=== PATIENT | male | born 1960 | race Caucasian/White ===

== ENCOUNTER 2016-12-17 13:29 | Emergency (ER) | payer MEDICAID ==
[2016-12-17 13:41] VITALS: BP 106/65; TEMP 97.5
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
[2016-12-17] MEDS ORDERED: IBUPROFEN 600 MG TAB PO ONE (14:03)
[2016-12-17] MEDS ORDERED: OXYCODONE/APAP 5/325 TAB PO ONE (14:15)
[2016-12-17 15:11] VITALS: PULSE 62; RESP 18; O2SAT 96
== END 2016-12-17 15:12 | disposition home or self-care (01) ==
LOC: EDUNIT#
DX: T22.232A Burn of second degree of left upper arm, initial encounter (principal); F17.200 Nicotine dependence, unspecified, uncomplicated; T31.0 Burns involving less than 10% of body surface; T22.231A Burn of second degree of right upper arm, initial encounter; X08.8XXA Exposure to other specified smoke, fire and flames, initial encounter; Y92.009 Unspecified place in unspecified non-institutional (private) residence as the place of occurrence of the external cause

== ENCOUNTER 2017-03-11 00:18 | Inpatient (IN) | payer MEDICAID ==
[2017-03-11] MEDS ORDERED: NS 1,000 ML IV ONE ×4 (00:25→04:30)
[2017-03-11] MEDS ORDERED: ONDANSETRON 4 MG/2 ML VIAL IVP ONE ×2 (00:25→01:49)
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
--- NOTE | 2017-03-11 00:35 | CPEKG ---
Heart Rate: 88 RR Interval: 682 P-R Interval: 172 QRSD Interval: 94 QT Interval: 380 QTC Interval: 460 P [place]: 68 QRS [place]: 82 T Wave [place]: 61 EKG Severity - BORDERLINE ECG - EKG Impression: SINUS RHYTHM EKG Impression: BORDERLINE INFERIOR Q WAVES Electronically Signed By: Trung Zayas 11-Mar-2017 06:52:48
[2017-03-11 01:06] LABS: % IMMATURE GRANULYOCYTES 0.3 % (0.0-1.1); ABSOLUTE IMMATURE GRANULOCYTES 0.03 10^3/uL (0.00-0.10); ADD DIFF? NO; ADD MORPH? NO; ADD SCAN? NO; ATYPICAL LYMPHOCYTE FLAG 10 (0-99); FRAGMENT RBC FLAG 0 (0-99); HEMATOCRIT 45.6 % (40.0-51.0); HEMOGLOBIN 15.4 g/dL (13.7-17.5); LEFT SHIFT FLG 0 (0-99); LIPEMIA HEMOLYSIS FLAG 90 (0-99); MEAN CELL HEMOGLOBIN 30.6 pg (27.9-34.1); MEAN CELL HEMOGLOBIN CONCENTR. 33.8 g/dL (32.4-36.7); MEAN CELL VOLUME 90.7 fL (81.5-99.8); MEAN PLATELET VOLUME 10.3 fL (8.7-11.7); PLATELET CLUMPS FLAG 0 (0-99); PLATELET COUNT 190 10^3/uL (150-400); RED BLOOD CELL COUNT 5.03 10^6/uL (4.40-6.38); RED CELL DISTRIBUTION WIDTH 17.5 % (11.5-15.2)
[2017-03-11 01:14] LABS: APTT 24.2 SEC (23.0-38.0); INR 0.97 (0.83-1.16); PROTIME(PATIENT) 12.8 SEC (12.0-15.0)
[2017-03-11 01:26] LABS: ALANINE AMINOTRANSFERASE 45 IU/L (21-72); ALBUMIN 5.3 g/dL (3.5-5.0); ALKALINE PHOSPHATASE 147 IU/L (38-126); ANION GAP 30 mEq/L (8-16); ASPARTATE AMINOTRANSFERASE 70 IU/L (17-59); BILIRUBIN,TOTAL 0.8 mg/dL (0.1-1.4); BILIRUBIN-CONJUGATED 0.2 mg/dL (0.0-0.5); BILIRUBIN-UNCONJUGATED 0.6 mg/dL (0.0-1.1); CALCIUM 9.4 mg/dL (8.5-10.4); CARBON DIOXIDE 11 mEq/l (22-31); CHLORIDE 101 mEq/L (97-110); CREATININE 0.9 mg/dL (0.7-1.3); ETHANOL SERUM 125 mg/dL (0-10); GLOMERULAR FILTRATION RATE > 60; GLUCOSE 66 mg/dL (70-100); MAGNESIUM 1.8 mg/dL (1.6-2.3); POTASSIUM 4.9 mEq/L (3.5-5.2); SODIUM 142 mEq/L (134-144); TOTAL PROTEIN 8.2 g/dL (6.3-8.2)
[2017-03-11 01:36] LABS: TROPONIN I < 0.012 ng/mL (0.000-0.034)
[2017-03-11] MEDS ORDERED: ACETAMINOPHEN 500 MG TAB PO ONE (01:40)
[2017-03-11] MEDS ORDERED: ACETAMINOPHEN 500 MG TAB ONE (01:50)
[2017-03-11] MEDS ORDERED: LORazepam 2 MG/ML INJ ONE (04:28)
[2017-03-11] MEDS ORDERED: LORazepam 2 MG/ML INJ IVP ONE ×3 (04:29→05:04)
[2017-03-11] MEDS ORDERED: IOPAMIDOL (ISOVUE-300) 100 ML BTL ONE (04:35)
[2017-03-11] MEDS ORDERED: LORazepam 2 MG/ML INJ IVP PRN (06:23)
[2017-03-11] MEDS ORDERED: ACETAMINOPHEN 325 MG TAB PO PRN (06:23)
[2017-03-11] MEDS ORDERED: ONDANSETRON 4 MG/2 ML VIAL IVP PRN (06:23)
[2017-03-11 06:30] LABS: ANION GAP 24 mEq/L (8-16); CALCIUM 8.3 mg/dL (8.5-10.4); CARBON DIOXIDE 10 mEq/l (22-31); CHLORIDE 104 mEq/L (97-110); CREATININE 0.9 mg/dL (0.7-1.3); GLOMERULAR FILTRATION RATE > 60; GLUCOSE 70 mg/dL (70-100); POTASSIUM 5.1 mEq/L (3.5-5.2); SODIUM 138 mEq/L (134-144)
[2017-03-11] MEDS ORDERED: NS 1,000 ML IV SCH (06:30)
[2017-03-11] MEDS: D5W NS 1,000 ML IV SCH ×2 (07:53→16:28)
--- NOTE | 2017-03-11 09:04 | PDGENHP ---
History and Physical - Chief Complaint nausea and vomiting - History of Present Illness Source - patient provides history and is a fair historian. EMR reviewed and case discussed with ED provider. HPI - Pleasant 57 yo M with pmhx significant for bipolar disorder,PTSD, anxiety and alcoholism presented to the ED this AM after he was kicked out of his hotel. Patient reports he developed nausea/vomiting, mid abdominal cramping, palpitations and headache. Patient reports subjective fevers chills. His symptoms started approximately 11AM. He reports drinking a pint of vodka the evening prior to coming into ED. Patient denies any chest pain or shortnes of breath. he is complaining of a "killer Headache" but denies any changes in vision or focal deficits. In the ED patient had persistent nausea/vomiting. He received IVF but was noted to have AG acidosis. despite anti-emetics patient continued to have active vomiting. A CT Abd/pelvis was notable for gastric distension and large volume of fluid retention otherwise normal. Patient did not have an NGT placed but received additional antiemetics and had no further episodes of vomiting since arrival to the floor. At time of my visit patient was actually wondering when he could eat. History Information - Allergies/Home Medication List Allergies/Adverse Reactions: No Known Allergies Allergy (Verified 02/03/15 22:26) Home Medications: Mirtazapine [Remeron] 30 mg PO HS 01/20/15 [Last Taken 3 Days Ago ~03/08/17] Gabapentin [Neurontin 300 MG (*)] 600 mg PO TID 03/11/17 [Last Taken 3 Days Ago ~03/08/17] PARoxetine HCL [Paxil 20mg (*)] 40 mg PO DAILY 03/11/17 [Last Taken 3 Days Ago ~ 03/08/17] QUEtiapine FUMARATE [Seroquel 100 mg (*)] 100 mg PO BID@,16 03/11/17 [Last Taken 3 Days Ago ~03/08/17] QUEtiapine FUMARATE [Seroquel 200 mg (*)] 200 mg PO HS 03/11/17 [Last Taken 3 Days Ago ~03/08/17] I have personally reviewed and updated: family history, medical history, social history, surgical history - Past Medical History Additional medical history: alcoholism 1 pint vodka regularly. depresison/ anxiety/PTSD/bipolar disorder. insomnia - Surgical History Additional surgical history: right arm skin graft. appy. katty - Family History Additional family history: patient denies DM, HTN - Social History Smoking Status: Heavy smoker Alcohol Use: Heavy (1 pint vodka) Drug Use: None Additional social history: Patient is homeless was recently dismissed from hotel. COR - FULL. Review of Systems Review of Systems: ROS: 10pt was reviewed & negative except for what was stated in HPI & below Constitutional: Reports: chills, fever EENMT: Reports: sore throat. Denies: blurred vision, eye pain, nose congestion Cardiac: Reports: no symptoms. Denies: chest pain, lightheadedness, palpitations, syncope Respiratory: Reports: cough (chronic). Denies: shortness of breath Gastrointestinal: Reports: vomitting, abdominal pain (midabdominal cramping now improved. ), nausea (reports "brown" emesis denies coffee grounds.). Denies: diarrhea Genitourinary: Denies: dysuria, hematuria Muscolosketal: Reports: calf pain (cramping without swelling or redness) Skin: Reports: no symptoms. Denies: lesions, rash Neurological: Reports: anxiety, depressed, headache, tingling (toes), tremors, other (patient is denying any SI/HI. ) Physical Exam Physical Exam: Selected Entries 03/11/17 00:28 Blood Pressure Automatic Method Heart Rate 91 Respiratory 18 Rate O2 Sat (%) 95 Temperature (C) 36.4 C Blood Pressure 150/115 H Mean Arterial 126 H Pressure (MAP) O2 Delivery Room Air Mode Temperature Oral Source Temp Pulse Resp BP Pulse Ox 36.7 C 90 16 147/94 H 94 03/11/17 06:43 03/11/17 06:43 03/11/17 06:43 03/11/17 06:43 03/11/17 06:43 Constitutional: no apparent distress, not in pain, chronically ill appearing, cachectic, other (patient appears fatigued and acutely ill but nontoxic. patient smells of alcohol.) Eyes: PERRL (slightly decreased reactivity to light), anicteric sclera, EOMI Ears, Nose, Mouth, Throat: poor dentition (several teeth in poor repair), dry mucous membranes, other (no nasal discharge, mild oropharyngeal erythema without exudates. ) Cardiovascular: regular rate and rhythym, no murmur, rub, or gallop, No edema Peripheral Pulses: 2+: dorsalis-pedis (R), dorsalis-pedis (L) Respiratory: no respiratory distress, no rales or rhonchi, clear to auscultation Gastrointestinal: soft, non-tender abdomen, no palpable masses, other ( hypoactive bowel sounds), No tenderness, No distension Genitourinary: no bladder tenderness, No cardoza in urethra Skin: warm, normal color, no rashes or abrasions Musculoskeletal: generalized weakness, other (moves all extremities. grossly normal.) Neurologic: AAOx3, weakness (generalized), CN II-XII Intact, other (slight tremor in hands presents bilaterally. ), No facial droop Psychiatric: interacting appropriately, not encephalopathic, thought process linear, anxious, depressed, flat affect, other (patient with some psychomotor delay in responses. ), No poor insight, No poor judgement, No poor memory Lab Data & Imaging Review 03/11/17 00:39 03/11/17 06:09 WBC 9.39 10^3/uL (3.80-9.50) 03/11/17 00:39 RBC 5.03 10^6/uL (4.40-6.38) 03/11/17 00:39 Hgb 15.4 g/dL (13.7-17.5) 03/11/17 00:39 Hct 45.6 % (40.0-51.0) 03/11/17 00:39 MCV 90.7 fL (81.5-99.8) 03/11/17 00:39 MCH 30.6 pg (27.9-34.1) 03/11/17 00:39 MCHC 33.8 g/dL (32.4-36.7) 03/11/17 00:39 RDW 17.5 % (11.5-15.2) H 03/11/17 00:39 Plt Count 190 10^3/uL (150-400) 03/11/17 00:39 MPV 10.3 fL (8.7-11.7) 03/11/17 00:39 Neut % (Auto) 76.1 % (39.3-74.2) H 03/11/17 00:39 Lymph % (Auto) 18.1 % (15.0-45.0) 03/11/17 00:39 [place] % (Auto) 5.0 % (4.5-13.0) 03/11/17 00:39 Eos % (Auto) 0.1 % (0.6-7.6) L 03/11/17 00:39 Baso % (Auto) 0.4 % (0.3-1.7) 03/11/17 00:39 Nucleat RBC Rel Count 0.0 % (0.0-0.2) 03/11/17 00:39 Absolute Neuts (auto) 7.14 10^3/uL (1.70-6.50) H 03/11/17 00:39 Absolute Lymphs (auto) 1.70 10^3/uL (1.00-3.00) 03/11/17 00:39 Absolute Monos (auto) 0.47 10^3/uL (0.30-0.80) 03/11/17 00:39 Absolute Eos (auto) 0.01 10^3/uL (0.03-0.40) L 03/11/17 00:39 Absolute Basos (auto) 0.04 10^3/uL (0.02-0.10) 03/11/17 00:39 Absolute Nucleated RBC 0.00 10^3/uL (0-0.01) 03/11/17 00:39 Immature Gran % 0.3 % (0.0-1.1) 03/11/17 00:39 Immature Gran # 0.03 10^3/uL (0.00-0.10) 03/11/17 00:39 PT 12.8 SEC (12.0-15.0) 03/11/17 00:39 INR 0.97 (0.83-1.16) 03/11/17 00:39 APTT 24.2 SEC (23.0-38.0) 03/11/17 00:39 Sodium 138 mEq/L (134-144) 03/11/17 06:09 Potassium 5.1 mEq/L (3.5-5.2) 03/11/17 06:09 Chloride 104 mEq/L (97-110) 03/11/17 06:09 Carbon Dioxide 10 mEq/l (22-31) L 03/11/17 06:09 Anion Gap 24 mEq/L (8-16) H 03/11/17 06:09 BUN 15 mg/dL (7-23) 03/11/17 06:09 Creatinine 0.9 mg/dL (0.7-1.3) 03/11/17 06:09 Estimated GFR > 60 03/11/17 06:09 Glucose 70 mg/dL (70-100) 03/11/17 06:09 Calcium 8.3 mg/dL (8.5-10.4) L 03/11/17 06:09 Magnesium 1.8 mg/dL (1.6-2.3) 03/11/17 00:39 Total Bilirubin 0.8 mg/dL (0.1-1.4) 03/11/17 00:39 Conjugated Bilirubin 0.2 mg/dL (0.0-0.5) 03/11/17 00:39 Unconjugated Bilirubin 0.6 mg/dL (0.0-1.1) 03/11/17 00:39 AST 70 IU/L (17-59) H 03/11/17 00:39 ALT 45 IU/L (21-72) 03/11/17 00:39 Alkaline Phosphatase 147 IU/L (38-126) H 03/11/17 00:39 Troponin I < 0.012 ng/mL (0.000-0.034) 03/11/17 00:39 Total Protein 8.2 g/dL (6.3-8.2) 03/11/17 00:39 Albumin 5.3 g/dL (3.5-5.0) H 03/11/17 00:39 Lipase 42 IU/L (23-300) 03/11/17 00:39 Ethyl Alcohol 125 mg/dL (0-10) H 03/11/17 00:39 Imaging Review: Preliminary reports reviewed. CT Abd/pelvis - distended stomach. no free air. otherwise normal. CT head - nothing acute. Visualized and Interpreted Chest x-ray results: Yes Chest X-Ray results: no infiltrate, normal, other (stomach with large gastric bubble no evidence of air under diaphragm) EKG Interpretation: Positive for: normal sinsus rhythm EKG additional interpertation: NSR 80s. small q waves inf leads. no acute ST changes. QTc 460. Assessment & Plan Assessment: 57 yo M with pmhx significant for alcoholism, bipolar disorder/anxiety/PTSD #intractable Nausea & vomiting (Acute) - continue with zofran phenergan prn. ativan/benadryl or haldol if persistently resistant to typical antiemetics. #anion gap acidosis - 2/2 dehydration with nausea/vomiting and/or alcohol intoxication. IVF hydration s/p 3 liters IVF in the ED. serial BMP. # stomach distension - no evidence of obstruction but possibly dysmotility related to gastritis vs. gastric outlet obstruction. Patient without NGT but has stopped vomiting. H2 maxine ordered. #Alcohol intoxication (Acute) - ativan prn. ciwa protocol ordered. transition to po benzo when diet advanced. thiamine IV. #hypoglycemia - patient will advance diet starting with clears. D5NS added for supplementation and hypoglycemia protocol ordered. #bipolar disorder - patient reports he stopped taking his medications a few days ago. once list can be verified by pharmacy will resume as diet improves. #anxiety/depression/PTSD - ativan prn. resume home medications when tolerating po. #homelessness - CM/SW consultation. FEN - IVF. electrolyte replacement if needed. clear diet for now patient reports he is feeling hungry. PPX - SCDs. lovenox if patient should stay additional day. COR - FULL. Dispo - Admit to observation on medical floor.
[2017-03-11] MEDS ORDERED: D50W 25 GM/50 ML SYR IVP PRN (09:05)
[2017-03-11] MEDS ORDERED: CEPACOL LOZENGE PO PRN (09:14)
[2017-03-11] MEDS: THIAMINE HCL 500 MG in NS 100 ML IV SCH (09:58)
[2017-03-11] MEDS: FAMOTIDINE 20 MG/NACL 50 ML IV SCH ×2 (09:58→21:50)
[2017-03-11] MEDS ORDERED: METOCLOPRAMIDE 10 MG/2 ML VIAL IVP SCH (12:00)
[2017-03-11] MEDS: LORazepam 2 MG/ML INJ IVP PRN ×2 (12:21→16:26)
--- NOTE | 2017-03-11 15:23 | HOSPPROG ---
Hospitalist Progress Note Assessment/Plan: 57 yo M with hx of etoh abuse pw etoh withdrawal # etoh use disorder and withdrawal: presented after being kicked out of his hotel with n/v and etoh w/d--w/d sxs beginning with BAL of 125. Improved on etoh w/d protocol, following CIWA scores. Continue MVI, thiamine and folate. Patient states he is planning to stay off of etoh going forward. # mild alcoholic hepatitis: mild elevation in ast > alt most c/w alc hep, mild, monitoring # bipolar/ptsd/anxiety: continue op management # dispo: IP status, will likely need > 48 hours stay for eval/mgmt of above Patient new to my care. Old records reviewed and summarized as above. Subjective: no significant overnight events, patient notes feeling a bit better than when he came in, still wants to quit drinking Objective: Vital Signs Temp Pulse Resp BP Pulse Ox 36.9 C 94 18 148/86 H 93 03/11/17 11:36 03/11/17 11:36 03/11/17 11:36 03/11/17 11:36 03/11/17 11:36 Laboratory Results 03/11/17 06:09 03/10/17 03/11/17 03/12/17 05:59 05:59 05:59 Intake Total 3120 Balance 3120 PT 12.8 SEC (12.0-15.0) 03/11/17 00:39 INR 0.97 (0.83-1.16) 03/11/17 00:39 awake alert nad anicteric op clear poor dentition rrr no mrg cta b soft nt nd no cce warm dry well perfused oriented appropriate ICD10 Worksheet Patient Problems: Problems Problem Status Onset Depression - Depressive disorder Acute Alcohol dependence with alcohol-induced mood disorder Acute Alcohol abuse, daily use Acute Alcohol withdrawal with inpatient treatment Acute Alcohol intoxication Acute Nausea & vomiting Acute
[2017-03-11] MEDS: QUEtiapine FUMARATE 100 MG TAB PO SCH (16:27)
[2017-03-11] MEDS: GABAPENTIN 300 MG CAP PO SCH ×2 (16:27→21:54)
--- NOTE | 2017-03-11 16:31 | ASMTCASEMG ---
Living Arrangements What is your living Answers: Alone arrangement? Who do you live with? Type Of Residence What kind of residence do Answers: House you live in? Discharge Plan Comments Coordination Status Comments Notes: Pt is a 57 y/o man admitted for nausea and vomiting. Pt is currently on a CIWA protocol. Pt has a hx of anxiety, bi polar d/o, PTSD and ETOH. CM met w/ pt for dispo planning and provided ETOH resources. Pt reports that he has been to numerous substance abuse tx facilities in the past. Pt reports that his longest length of sobriety was a year. Pt reports that living w/ his dad is not a viable option at this time. Pt reports that he was staying at [facility] prior to coming to the hospital. Pt reports that we would most likely be able to reserve a fci bed for him at time of d/c. CM available for d/c needs. Date Signed: 03/11/2017 04:30 PM Electronically Signed By:MAURICE Tomlinson
--- NOTE | 2017-03-11 16:41 | ASMTCAGE ---
CAGE Do you feel you ought to Answers: Yes cut down on your drinking or drug use? Do people annoy you by Answers: No criticizing your drinking or drug use? Do you feel guilty about Answers: Yes your drinking or drug use? Do you drink or use drugs Answers: No first thing in the morning ([employer])? Date Signed: 03/11/2017 04:40 PM Electronically Signed By:MAURICE Tomlinson
[2017-03-11 18:04] LABS: COLOR YELLOW; LEUKOCYTE ESTERASE,URINE NEGATIVE (NEGATIVE); NITRITE,URINE NEGATIVE (NEGATIVE)
[2017-03-11] MEDS: QUEtiapine FUMARATE 200 MG TAB PO SCH (21:54)
[2017-03-11] MEDS: MIRTAZAPINE 30 MG TAB PO SCH (21:54)
[2017-03-12] MEDS: D5W NS 1,000 ML IV SCH (03:38)
[2017-03-12 05:33] LABS: % IMMATURE GRANULYOCYTES 0.2 % (0.0-1.1); ABSOLUTE IMMATURE GRANULOCYTES 0.01 10^3/uL (0.00-0.10); ADD DIFF? NO; ADD MORPH? NO; ADD SCAN? NO; ATYPICAL LYMPHOCYTE FLAG 10 (0-99); FRAGMENT RBC FLAG 0 (0-99); HEMATOCRIT 36.9 % (40.0-51.0); HEMOGLOBIN 12.7 g/dL (13.7-17.5); LEFT SHIFT FLG 0 (0-99); LIPEMIA HEMOLYSIS FLAG 90 (0-99); MEAN CELL HEMOGLOBIN 30.8 pg (27.9-34.1); MEAN CELL HEMOGLOBIN CONCENTR. 34.4 g/dL (32.4-36.7); MEAN CELL VOLUME 89.6 fL (81.5-99.8); MEAN PLATELET VOLUME 10.9 fL (8.7-11.7); PLATELET CLUMPS FLAG 10 (0-99); PLATELET COUNT 109 10^3/uL (150-400); RED BLOOD CELL COUNT 4.12 10^6/uL (4.40-6.38); RED CELL DISTRIBUTION WIDTH 17.2 % (11.5-15.2)
[2017-03-12 05:55] LABS: ALANINE AMINOTRANSFERASE 32 IU/L (21-72); ALBUMIN 3.6 g/dL (3.5-5.0); ALKALINE PHOSPHATASE 89 IU/L (38-126); ANION GAP 10 mEq/L (8-16); ASPARTATE AMINOTRANSFERASE 41 IU/L (17-59); BILIRUBIN,TOTAL 0.7 mg/dL (0.1-1.4); CALCIUM 8.7 mg/dL (8.5-10.4); CARBON DIOXIDE 22 mEq/l (22-31); CHLORIDE 112 mEq/L (97-110); CREATININE 0.8 mg/dL (0.7-1.3); GLOMERULAR FILTRATION RATE > 60; GLUCOSE 101 mg/dL (70-100); SODIUM 144 mEq/L (134-144); TOTAL PROTEIN 5.9 g/dL (6.3-8.2)
[2017-03-12] MEDS: THIAMINE HCL 500 MG in NS 100 ML IV SCH (10:18)
[2017-03-12] MEDS: FAMOTIDINE 20 MG/NACL 50 ML IV SCH (10:18)
[2017-03-12] MEDS: QUEtiapine FUMARATE 100 MG TAB PO SCH ×2 (10:19→16:36)
[2017-03-12] MEDS: GABAPENTIN 300 MG CAP PO SCH ×3 (10:20→20:59)
[2017-03-12] MEDS: PARoxetine HCL 20 MG TAB PO SCH (10:20)
[2017-03-12] MEDS: ENOXAPARIN 40 MG/0.4 ML SYR SC SCH (10:22)
[2017-03-12] MEDS: LORazepam 2 MG/ML INJ IVP PRN ×3 (10:43→22:36)
--- NOTE | 2017-03-12 13:20 | PDMN ---
Medical Necessity Medical necessity: change to IP; los>2mn for etoh use disorder and withdrawal, and alcoholic hepatitis; admit for CIWA, lab monitoring, IVF W/MVI; comorbid bipolar; per order and H&P 03/11/17
--- NOTE | 2017-03-12 15:07 | ASMTCMCOM ---
CM Note CM Note Notes: CM spoke w/ pts father Denzel, on the phone. Denzel reports that pt is a fugitive. CM notified charge nurse and pts nurseMindy of this. Denzel reports that pt missed his work release appointment on 02/28 with [facility]. Denzel reports that pt has 0 supports here. Denzel reports that he will no longer give him any more money. Pt reports that he has already spent over 10k helping him in the past. Denzel reports that he will call [facility] to notify them. CM spoke w/ Dr. Luna regarding d/c POC. PT and OT have been ordered. CM to follow. Date Signed: 03/12/2017 03:06 PM Electronically Signed By:MAURICE Tomlinson
--- NOTE | 2017-03-12 16:22 | HOSPPROG ---
Hospitalist Progress Note Assessment/Plan: Assessment: 57 yo M p/w acute alcohol withdraw c/b persistent nausea, headache, general malaise Plan: # etoh use disorder and acute withdrawal: evidenced by malaise, nausea, tremulousness, EtOH 125 on presentation, attempting to get/stay sober - ongoing withdraw sx, cont CIWA - work w/ PT/OT today to gauge safety w/ ambulation # general malaise: acute, new problem, further w/u indicated. nausea, headache, gen weakness, patient reports these are different symptoms from prior episode of EtOH withdraw - cont supportive care w/ anti-emetics, NSAID/tylenol - stop IVF given PO intake - CXR w/o PNA (personally interpreted), CT abd w/ steatosis and gastric distention but nothing acute, HCT w/o ICH - start PPI for possible reflux contributing - get ESR/CRP/CPK to ensure no underlying inflam myopathy # mild alcoholic hepatitis: mild elevation in ast > alt most c/w alc hep, mild, monitoring # bipolar/ptsd/anxiety: continue op management diet: reg as ninfa ppx: high risk, lovenox 40 code: full dispo: ADD 03/13, pending PT/OT evals, has ongoing sx so unsafe to discharge Subjective: ongoing nausea, weakness, feels unwell Objective: Vital Signs Temp Pulse Resp BP Pulse Ox 37.0 C 66 18 127/75 H 92 03/12/17 15:43 03/12/17 15:43 03/12/17 15:43 03/12/17 15:43 03/12/17 15:43 Laboratory Results 03/12/17 04:53 03/12/17 04:53 03/11/17 03/12/17 03/13/17 05:59 05:59 05:59 Intake Total 2237 Output Total 900 Balance 2237 -900 PT 12.8 SEC (12.0-15.0) 03/11/17 00:39 INR 0.97 (0.83-1.16) 03/11/17 00:39 - Physical Exam Constitutional: no apparent distress, appears nourished, not in pain, uncomfortable Cardiovascular: regular rate and rhythym, no murmur, rub, or gallop, No edema Respiratory: no respiratory distress, no rales or rhonchi, clear to auscultation Gastrointestinal: normoactive bowel sounds, soft, non-tender abdomen, no palpable masses, No guarding, No distension Neurologic: AAOx3, other (mild tremulousness), No weakness (motor 5/5 bilat LE) , No asterixes Psychiatric: not encephalopathic, thought process linear, anxious, No agitated ICD10 Worksheet Patient Problems: Problems Problem Status Onset Alcohol intoxication Acute Nausea & vomiting Acute Alcohol abuse, daily use Acute Alcohol dependence with alcohol-induced mood disorder Acute Alcohol withdrawal with inpatient treatment Acute Depression - Depressive disorder Acute
[2017-03-12] MEDS ORDERED: CALCIUM CARBONATE 500 MG CHEWABLE TAB PO PRN (16:33)
[2017-03-12] MEDS ORDERED: ONDANSETRON DISINTEGRATING 4 MG TAB PO PRN (16:34)
[2017-03-12] MEDS ORDERED: PROMETHAZINE HCL 25 MG TAB PO PRN (16:34)
[2017-03-12] MEDS: PANTOPRAZOLE SODIUM 40 MG TAB PO SCH (17:40)
[2017-03-12 17:49] LABS: C-REACTIVE PROTEIN 7.6 mg/L (<10.0)
[2017-03-12 19:18] LABS: SEDIMENTATION RATE 7 MM/HR (0-20)
[2017-03-12] MEDS: QUEtiapine FUMARATE 200 MG TAB PO SCH (20:59)
[2017-03-12] MEDS: MIRTAZAPINE 30 MG TAB PO SCH (20:59)
[2017-03-13] MEDS: LORazepam 1 MG TAB PO PRN ×3 (00:55→14:33)
[2017-03-13] MEDS: GABAPENTIN 300 MG CAP PO SCH ×2 (08:48→15:13)
[2017-03-13] MEDS: PARoxetine HCL 20 MG TAB PO SCH (08:48)
[2017-03-13] MEDS: QUEtiapine FUMARATE 100 MG TAB PO SCH ×2 (08:48→15:14)
[2017-03-13] MEDS: ENOXAPARIN 40 MG/0.4 ML SYR SC SCH (08:48)
[2017-03-13] MEDS: PANTOPRAZOLE SODIUM 40 MG TAB PO SCH (08:48)
[2017-03-13 11:33] VITALS: O2SAT 95
[2017-03-13 16:13] VITALS: BP 127/98; PULSE 76; RESP 18; TEMP 98
--- NOTE | 2017-03-13 17:02 | ASMTCMCOM ---
CM Note CM Note Notes: Pt. d/c'ed today later in the afternoon. After MD saw Pt., Pt. told SWer that he didn't understand that he would be d/c'ed and he wasn't ready to go. Lennyr let RN know who will be working with MD on Pt's d/c. Jim provided Pt. earlier in the day w/ a list of [facility] shelters through the [facility] to Home program. Gave Pt. a bus pass and [facility] appt. for 03/18/17 at 10:30 w/ Meena Kumar NP in the Green pod. RN to work with MD on d/c of Pt. Jim left information of how to get Pt. [facility] Skilled Nursing bed and left cab voucher should it be necessary. Date Signed: 03/13/2017 05:01 PM Electronically Signed By:Dionna Lobato LCSW
--- NOTE | 2017-03-13 17:49 | PDDCSUM ---
Discharge Summary Discharge Summary: DISCHARGE SUMMARY FOLLOW-UP ITEMS: Establish primary care Follow up with [facility] DATE OF ADMISSION: 03/11/2017 DATE OF DISCHARGE: 03/13/2017 DISCHARGE DIAGNOSES: 1. Suspected gastritis 2. Suspected gastroesophageal reflux disease 3. Hepatic steatosis 4. Acute alcohol withdrawal 5. Bipolar disease type 1 6. Acute malaise CONSULTATIONS: None PROCEDURES / IMAGING: CT of the abdomen demonstrating steatosis, gastric distention and likely reflux CHIEF COMPLAINT: General malaise, nausea vomiting headache SUBJECTIVE: Patient is feeling well at time discharge, he is somewhat stressed and anxious PHYSICAL EXAM ON DISCHARGE: Systolic blood pressure is 127, heart rate 76, afebrile overnight, satting well on room air, alert awake oriented x3, mild amount of stress, no tremulousness, ambulating safely LABS ON DISCHARGE: CRP and ESR both normal HOSPITAL COURSE BY PROBLEM: The patient presented with general malaise, nausea, vomiting, headache, most likely secondary to acute alcohol withdrawal. He was notably tremulous, tachycardic, anxious. His alcohol level was 125, and he had recently been coming down off of alcohol binge. The reason the patient quit drinking was secondary to monetary reasons. The patient most likely also had an element of alcohol induced gastritis, with resultant reflux, and he was initiated on a PPI. Patient was also initiated on the CIWA score, received Ativan. He was evaluated for underlying structural and infectious causes of his symptoms, and there was no other clear precipitant. His inflammatory markers were notably normal, indicating that it was unlikely that the patient was experiencing any element of viral gastroenteritis. The patient was evaluated by physical and occupational therapy, and they deem the patient safe for discharge on March 13. The patient's alcohol withdrawal had been subsiding, and he will be prescribed 5 additional doses of low-dose Librium, to help manage symptoms after discharge. I have warned patient that these medications are not to be taken with alcohol. The patient is very concerned about his outpatient behavioral health medication regimen, and I have recommended that he follow up with [facility] as soon as possible. DISCHARGE MEDICATIONS: Please see official discharge medication reconciliation sheet in chart , Librium 10 mg once daily for 5 days pantoprazole 40 mg daily for 1 month, continue other home medications. DISCHARGE INSTRUCTIONS: Please follow up with [facility] as soon as possible. TIME SPENT: Greater than 30 minutes were spent on direct patient care, as well as discharge planning and preparation.
--- NOTE | 2017-03-14 10:50 | ASDISCHSUM ---
Discharge Information Plan Status:Home with No Needs Medically Cleared to Leave: Discharge Date:03/13/2017 05:50 PM CM D/C Disposition:Home, Routine, Self-Care ADT D/C Disposition:Home, Routine, Self-Care Projected Discharge Date:03/13/2017 05:50 PM Transportation at D/C:Taxicab Discharge Delay Reason: Follow-Up Date:03/13/2017 05:50 PM Discharge Slot: Final Diagnosis: Placement Information Patient Contact Information Contact Name:LILIAN Relationship:Father Address: Work Phone: City:[place] Alternate Phone: State/[place] Code:[place] Email: Financial Information Financial Class: Primary Plan Desc:[facility] Primary Plan Number:[id number] Secondary Plan Desc: Secondary Plan Number: Assessment Information [facility] Initial CM Assessment Living Arrangements What is your living Answers: Alone arrangement? Who do you live with? Type Of Residence What kind of residence do Answers: House you live in? Discharge Plan Comments Coordination Status Comments Notes: Pt is a 57 y/o man admitted for nausea and vomiting. Pt is currently on a [facility] protocol. Pt has a hx of anxiety, bi polar d/o, PTSD and ETOH. CM met w/ pt for dispo planning and provided ETOH resources. Pt reports that he has been to numerous substance abuse tx facilities in the past. Pt reports that his longest length of sobriety was a year. Pt reports that living w/ his dad is not a viable option at this time. Pt reports that he was staying at [facility] prior to coming to the hospital. Pt reports that we would most likely be able to reserve a fdc bed for him at time of d/c. CM available for d/c needs. Date Signed: 03/11/2017 04:30 PM Electronically Signed By:MAURICE Tomlinson CAGE Questionnaire CAGE Do you feel you ought to Answers: Yes cut down on your drinking or drug use? Do people annoy you by Answers: No criticizing your drinking or drug use? Do you feel guilty about Answers: Yes your drinking or drug use? Do you drink or use drugs Answers: No first thing in the morning ([employer])? Date Signed: 03/11/2017 04:40 PM Electronically Signed By:MAURICE Tomlinson [facility] Progress Note CM Note CM Note Notes: CM spoke w/ pts father Denzel, on the phone. Denzel reports that pt is a fugitive. FABBY notified charge nurse and pts nurseMindy of this. Denzel reports that pt missed his work release appointment on 02/28 with [facility]. Denzel reports that pt has 0 supports here. Denzel reports that he will no longer give him any more money. Pt reports that he has already spent over 10k helping him in the past. Denzel reports that he will call [facility] to notify them. FABBY spoke w/ Dr. Luna regarding d/c POC. PT and OT have been ordered. CM to follow. Date Signed: 03/12/2017 03:06 PM Electronically Signed By:MAURICE Tomlinson [facility] FABBY Progress Note CM Note CM Note Notes: Pt. d/c'ed today later in the afternoon. After MD saw Pt., Pt. told Lennyr that he didn't understand that he would be d/c'ed and he wasn't ready to go. Jim let RN know who will be working with MD on Pt's d/c. Jim provided Pt. earlier in the day w/ a list of [facility] shelters through the Path to Home program. Gave Pt. a bus pass and [facility] appt. for 03/18/17 at 10:30 w/ Meena Kumar NP in the Green pod. RN to work with MD on d/c of Pt. Jim left information of how to get Pt. [facility] Long Term bed and left cab voucher should it be necessary. Date Signed: 03/13/2017 05:01 PM Electronically Signed By:Dionna Lobato LCSW Intervention Information
[2017-03-16] MEDS ORDERED: THIAMINE HCL 100 MG TAB PO SCH (00:40)
== END 2017-03-13 17:50 | disposition home or self-care (01) | DRG 897 ==
LOC: EDUNIT# → F3E 06:33 → OBSVTOIN 15:24
PROVIDERS: ADMIT Family Medicine; ATTEND Internal Medicine
DX: F10.239 Alcohol dependence with withdrawal, unspecified (principal); K29.70 Gastritis, unspecified, without bleeding; E87.2 Acidosis; K21.9 Gastro-esophageal reflux disease without esophagitis; K76.0 Fatty (change of) liver, not elsewhere classified; F31.9 Bipolar disorder, unspecified; R53.81 Other malaise; F43.10 Post-traumatic stress disorder, unspecified; F41.9 Anxiety disorder, unspecified; E86.0 Dehydration; E16.2 Hypoglycemia, unspecified; Z59.0 Homelessness
CPT/HCPCS: 96374; 97161-GP; G0480; G8978-GP-CI; G8979-GP-CI; G8980-GP-CI; J1650; J2060; J2405; J3411; Q9967

== ENCOUNTER 2017-03-15 08:27 | Emergency (ER) | payer MEDICAID ==
--- NOTE | 2017-03-15 08:38 | EDPHY ---
H & P Time Seen by Provider: 03/15/17 08:36 - Personal History Tetanus Vaccine Date: <10 YEARS - Medical/Surgical History Hx Asthma: No Hx Chronic Respiratory Disease: No Hx Diabetes: No Hx Cardiac Disease: No Hx Renal Disease: No Hx Cirrhosis: No Hx Alcoholism: Yes Hx HIV/AIDS: No Hx Splenectomy or Spleen Trauma: No Other PMH: PMH--BIPOLAR, ETOH abuse, PTSD, anxiety. alcohol withdrawl. PSH-- Appy, Choly - Social History Smoking Status: Heavy smoker Constitutional: Initial Vital Signs Temperature (C) 36.4 C 03/15/17 08:43 Heart Rate 79 03/15/17 08:43 Respiratory Rate 18 03/15/17 08:43 Blood Pressure 113/84 H 03/15/17 08:43 O2 Sat (%) 95 03/15/17 08:43 O2 Delivery Mode Room Air Allergies/Adverse Reactions: No Known Allergies Allergy (Verified 02/03/15 22:26) Home Medications: Medication Instructions Recorded Mirtazapine [Remeron] 30 mg PO HS 01/20/15 Gabapentin [Neurontin 300 MG (*)] 600 mg PO TID 03/11/17 PARoxetine HCL [Paxil 20mg (*)] 40 mg PO DAILY 03/11/17 QUEtiapine FUMARATE [Seroquel 100 100 mg PO BID@09,16 03/11/17 mg (*)] QUEtiapine FUMARATE [Seroquel 200 200 mg PO HS 03/11/17 mg (*)] Ondansetron Odt [Zofran Odt 4 mg 4 - 8 mg PO Q4HRS PRN #40 tab 03/13/17 (*)] Pantoprazole Sodium [Protonix 40mg 40 mg PO DAILY #30 tab 03/13/17 (*)] chlordiazePOXIDE [Librium] 10 mg PO DAILY #5 cap 03/13/17 Medical Decision Making ED Course/Re-evaluation: CHIEF COMPLAINT: Anxiety HISTORY OF PRESENT ILLNESS: The patient is a 57 y/o male arriving via EMS complaining of an anxiety attack this morning. He was admitted on 03/11/17 for gastritis and alcohol withdrawal. He was discharged to a hotel, but was not able to pay for it and is now in a homeless residential. He is also complaining of dizziness and thirst at this time. He is not currently taking his medications. The patient is a poor historian. Prior reports reviewed including ED Visit with Dr. Zayas on 03/11/17. REVIEW OF SYSTEMS: A 10 point review of systems was performed and is negative with the exception of the elements mentioned in the history of present illness. PHYSICAL EXAM: HR, BP, O2 Sat, RR. Temp noted General Appearance: Alert, well hydrated, appropriate, and non-toxic appearing. Head: Atraumatic without scalp tenderness or obvious injury Eyes: Pupils equal, round, reactive to light and accommodation, EOMI, no trauma , no injection. Ears: Clear bilaterally, no perforation, normal landmarks Nose: Atraumatic, no rhinorrhea, clear. Throat: Mucus membranes moist. Neck: Supple, nontender, no lymphadenopathy. Respiratory: No retractions, no distress, no wheezes, and no accessory muscle use. Lungs are clear to auscultation bilaterally. Cardiovascular: Regular rate and rhythm, no murmurs, rubs, or gallops. Good capillary refill all extremities. Gastrointestinal: Abdomen is soft, nontender, non-distended, no masses, no rebound, no guarding, no peritoneal signs. Musculoskeletal: Normal active ROM of all extremities, atraumatic. Neurological: Alert, appropriate, and interactive. Non-focal neuro. Skin: No rashes, good turgor, no nodules on palpation. Past medical history: Bipolar, alcohol abuse, alcohol withdrawal, PTSD, anxiety Past surgical history: Appendectomy, cholecystectomy Family history: Denies Social history: Homeless, alcohol and tobacco use DIAGNOSTICS/PROCEDURES/CRITICAL CARE TIME: DIFFERENTIAL DIAGNOSIS: The differential diagnosis for the patient's anxiety included but was not limited to anxiety, bipolar disorder, functional and major depression, situational depression, medication side effect, drugs, and alcohol abuse. MEDICAL DECISION MAKING: The patient is a bipolar, homeless 57 y/o male arriving via EMS complaining of an anxiety attack this morning. He is not currently anxious. His physical exam is normal. Reassessed patient and discussed laboratory results. Return precautions provided ; patient is comfortable with this plan. - Data Points Laboratory Results: Laboratory Results 03/15/17 09:00 03/15/17 09:00 03/15/17 03/15/17 09:00 09:00 WBC 5.52 10^3/uL 10^3/uL (3.80-9.50) RBC 4.28 10^6/uL L 10^6/uL (4.40-6.38) Hgb 13.4 g/dL L g/dL (13.7-17.5) Hct 38.8 % L % (40.0-51.0) MCV 90.7 fL fL (81.5-99.8) MCH 31.3 pg pg (27.9-34.1) MCHC 34.5 g/dL g/dL (32.4-36.7) RDW 17.1 % H % (11.5-15.2) Plt Count 119 10^3/uL L 10^3/uL (150-400) MPV 11.2 fL fL (8.7-11.7) Neut % (Auto) 70.3 % % (39.3-74.2) Lymph % (Auto) 18.5 % % (15.0-45.0) [place] % (Auto) 9.1 % % (4.5-13.0) Eos % (Auto) 0.9 % % (0.6-7.6) Baso % (Auto) 0.5 % % (0.3-1.7) Nucleat RBC Rel Count 0.0 % % (0.0-0.2) Absolute Neuts (auto) 3.88 10^3/uL 10^3/uL (1.70-6.50) Absolute Lymphs (auto) 1.02 10^3/uL 10^3/uL (1.00-3.00) Absolute Monos (auto) 0.50 10^3/uL 10^3/uL (0.30-0.80) Absolute Eos (auto) 0.05 10^3/uL 10^3/uL (0.03-0.40) Absolute Basos (auto) 0.03 10^3/uL 10^3/uL (0.02-0.10) Absolute Nucleated RBC 0.00 10^3/uL 10^3/uL (0-0.01) Immature Gran % 0.7 % % (0.0-1.1) Immature Gran # 0.04 10^3/uL 10^3/uL (0.00-0.10) Sodium 138 mEq/L mEq/L (134-144) Potassium 4.6 mEq/L mEq/L (3.5-5.2) Chloride 104 mEq/L mEq/L (97-110) Carbon Dioxide 25 mEq/l mEq/l (22-31) Anion Gap 9 mEq/L mEq/L (8-16) BUN 22 mg/dL mg/dL (7-23) Creatinine 0.8 mg/dL mg/dL (0.7-1.3) Estimated GFR > 60 Glucose 104 mg/dL H mg/dL (70-100) Calcium 9.6 mg/dL mg/dL (8.5-10.4) Salicylates < 1.0 mg/dL L mg/dL (2.0-20.0) Acetaminophen < 10 mcg/mL L mcg/mL (10-30) Ethyl Alcohol < 10 mg/dL mg/dL (0-10) Departure - Departure Disposition: Home, Routine, Self-Care Clinical Impression: Anxiety Condition: Good Instructions: Anxiety (ED) Additional Instructions: 1. Follow-up with your primary doctor within 72 hours. 2. Return to the Emergency Department for fever, chest pain, shortness of breath , increasing pain or other worsening of condition. Referrals: [facility],. [Clinic] - As per Instructions Report Scribed for: Per Hood Report Scribed by: Rajwinder Brooks Date of Report: 03/15/17 Time of Report: 09:00
[2017-03-15 08:49] VITALS: TEMP 97.5
[2017-03-15 09:33] LABS: % IMMATURE GRANULYOCYTES 0.7 % (0.0-1.1); ABSOLUTE IMMATURE GRANULOCYTES 0.04 10^3/uL (0.00-0.10); ADD DIFF? NO; ADD MORPH? NO; ADD SCAN? NO; ATYPICAL LYMPHOCYTE FLAG 30 (0-99); FRAGMENT RBC FLAG 0 (0-99); HEMATOCRIT 38.8 % (40.0-51.0); HEMOGLOBIN 13.4 g/dL (13.7-17.5); LEFT SHIFT FLG 0 (0-99); LIPEMIA HEMOLYSIS FLAG 90 (0-99); MEAN CELL HEMOGLOBIN 31.3 pg (27.9-34.1); MEAN CELL HEMOGLOBIN CONCENTR. 34.5 g/dL (32.4-36.7); MEAN CELL VOLUME 90.7 fL (81.5-99.8); MEAN PLATELET VOLUME 11.2 fL (8.7-11.7); PLATELET CLUMPS FLAG 0 (0-99); PLATELET COUNT 119 10^3/uL (150-400); RED BLOOD CELL COUNT 4.28 10^6/uL (4.40-6.38); RED CELL DISTRIBUTION WIDTH 17.1 % (11.5-15.2)
[2017-03-15 09:41] LABS: ANION GAP 9 mEq/L (8-16); CALCIUM 9.6 mg/dL (8.5-10.4); CARBON DIOXIDE 25 mEq/l (22-31); CHLORIDE 104 mEq/L (97-110); CREATININE 0.8 mg/dL (0.7-1.3); ETHANOL SERUM < 10 mg/dL (0-10); GLOMERULAR FILTRATION RATE > 60; GLUCOSE 104 mg/dL (70-100); POTASSIUM 4.6 mEq/L (3.5-5.2); SALICYLATE < 1.0 mg/dL (2.0-20.0); SODIUM 138 mEq/L (134-144)
[2017-03-15 09:59] VITALS: BP 110/70; PULSE 70; RESP 15; O2SAT 96
--- NOTE | 2017-03-15 10:58 | ASMTCMCOM ---
CM Note CM Note Notes: Patient assessed and medically cleared to be discharged from the ED. Patient was just discharged from [facility] as inpatient yesterday 03/14/17 with instructions that he has an appointment at [facility] on Saturday03/20/17 at 10:30am with Meena Kumar NP. This was reiterated to the patient and provided in his discharge paperwork. Patient was also directed to follow up with [facility] for his anxiety and mental health care. Patient also reminded that he can always present to [facility] 12/11 walkin- crisis center. CM available for further assistance. Date Signed: 03/15/2017 10:57 AM Electronically Signed By:Dionna Belle RN
--- NOTE | 2017-03-15 10:59 | ASDISCHSUM ---
Discharge Information Plan Status:Homeless/[facility] Medically Cleared to Leave: Discharge Date:03/15/2017 10:07 AM CM D/C Disposition:Streets (Homeless) ADT D/C Disposition:Home, Routine, Self-Care Projected Discharge Date:03/15/2017 10:07 AM Transportation at D/C:Self Discharge Delay Reason: Follow-Up Date:03/15/2017 10:07 AM Discharge Slot: Final Diagnosis: Placement Information Patient Contact Information Contact Name:LILIAN Relationship:Father Address: Work Phone: City:[place] Alternate Phone: State/Zip Code:[place] Email: Financial Information Financial Class: Primary Plan Desc:MEDICAID [facility] [employer] [place] Primary Plan Number:[id number] Secondary Plan Desc: Secondary Plan Number: Assessment Information LACE LACE Acuity / Level of Care Answers: No. Emergency dept visits in Answers: 3 last 6 months Score: 3 Date Signed: 03/15/2017 10:52 AM Electronically Signed By:Dionna Belle RN [facility] CM Progress Note CM Note CM Note Notes: Patient assessed and medically cleared to be discharged from the ED. Patient was just discharged from [facility] as inpatient yesterday 03/14/17 with instructions that he has an appointment at [facility] on Saturday03/20/17 at 10:30am with Meena Kumar NP. This was reiterated to the patient and provided in his discharge paperwork. Patient was also directed to follow up with [facility] for his anxiety and mental health care. Patient also reminded that he can always present to [facility] 12[facility]. CM available for further assistance. Date Signed: 03/15/2017 10:57 AM Electronically Signed By:Dionna Belle RN Intervention Information
== END 2017-03-15 10:07 | disposition home or self-care (01) ==
LOC: EDUNIT#
DX: F41.9 Anxiety disorder, unspecified (principal); F17.200 Nicotine dependence, unspecified, uncomplicated
CPT/HCPCS: G0480

== ENCOUNTER 2017-06-10 15:36 | Emergency (ER) | payer MEDICAID ==
--- NOTE | 2017-06-10 15:38 | EDPHY ---
HPI/HX/ROS/PE/MDM Narrative: CHIEF COMPLAINT: AMS HPI: This patient is a 57 y/o male with history of bipolar disorder arriving via EMS for evaluation of altered mental status. He is currently living at [facility] and EMS was called after the patient was seen acting altered in the lobby and attempting to walk into other people's rooms. Per EMS report, the patient is generally A&Ox0 with unintelligible speech. He is responsive to voice with occasional moments of lucidity. Vitals were stable in transport. EMS placed the patient on 4L O2 to attain 94% SpO2. BGL 152. Per EMS, he denied drug or alcohol use. He does take Seroquel and Clonidine for bipolar disorder. REVIEW OF SYSTEMS: Unobtainable due to patient presentation. PMH: Bipolar disorder. SOCIAL HISTORY: Lives in [place]. PHYSICAL EXAM: General:Patient is alert, in no acute distress. ENT: Small abrasion over right eyebrow. Eyes are normal to inspection. ENT inspection normal. Neck: Normal inspection. Full range of motion. Respiratory:No respiratory distress. Breath sounds normal bilaterally. Cardiovascular: Regular rate and rhythm. Strong peripheral pulses. Normal cap refill. Abdomen:The abdomen is nontender to palpation. There are no peritoneal signs. There are normal bowel sounds. Back: Normal to inspection. No tenderness to palpation. Skin: Normal color. No rash. Warm and dry. Extremities: Normal appearance. Full range of motion. Neuro: Oriented x3. Normal motor function. Normal sensory function. ED Course: 15:36 Met EMS at bedside. 57 y/o male presents with altered mental status. Plan for EKG, labs including CBC, chemistries, EtOH, tox screen. EtOH negative. Tox screen pending. Plan for CT head. 16:[address] Choi, radiologist. CT head negative for acute processes. Toxicology negative. 20:00 Reassessed. The patient is now alert and conversational. His exam is unremarkable other than a small abrasion above his right eyebrow, and he is currently neurologically intact. He is not sure what happened earlier, but feels well now. He complains of a mild headache but feels well enough for discharge. - Data Points Imaging Results: Imaging Impressions Head CT 06/10/17 16:36 Impression: Nothing acute identified.. Results called to Dr. Deangelo Whitling 4:56 PM General information for patients regarding this examination can be found at [email or web address]. If you have questions or comments about this report, please contact me at [phone] (hospital) or [phone] ([facility]). Imaging: Discussed imaging studies w/ scallop binder Radiologist Laboratory Results: Laboratory Results 06/10/17 15:40 06/10/17 15:50 06/10/17 06/10/17 06/10/17 17:00 15:50 15:40 WBC 13.11 10^3/uL H 10^3/uL (3.80-9.50) RBC 4.81 10^6/uL 10^6/uL (4.40-6.38) Hgb 14.1 g/dL g/dL (13.7-17.5) Hct 42.3 % % (40.0-51.0) MCV 87.9 fL fL (81.5-99.8) MCH 29.3 pg pg (27.9-34.1) MCHC 33.3 g/dL g/dL (32.4-36.7) RDW 14.0 % % (11.5-15.2) Plt Count 272 10^3/uL 10^3/uL (150-400) MPV 10.1 fL fL (8.7-11.7) Neut % (Auto) 85.9 % H % (39.3-74.2) Lymph % (Auto) 7.9 % L % (15.0-45.0) [place] % (Auto) 5.7 % % (4.5-13.0) Eos % (Auto) 0.0 % L % (0.6-7.6) Baso % (Auto) 0.2 % L % (0.3-1.7) Nucleat RBC Rel Count 0.0 % % (0.0-0.2) Absolute Neuts (auto) 11.26 10^3/uL H 10^3/uL (1.70-6.50) Absolute Lymphs (auto) 1.03 10^3/uL 10^3/uL (1.00-3.00) Absolute Monos (auto) 0.75 10^3/uL 10^3/uL (0.30-0.80) Absolute Eos (auto) 0.00 10^3/uL L 10^3/uL (0.03-0.40) Absolute Basos (auto) 0.03 10^3/uL 10^3/uL (0.02-0.10) Absolute Nucleated RBC 0.00 10^3/uL 10^3/uL (0-0.01) Immature Gran % 0.3 % % (0.0-1.1) Immature Gran # 0.04 10^3/uL 10^3/uL (0.00-0.10) Sodium 146 mEq/L H mEq/L (135-145) Potassium 4.8 mEq/L mEq/L (3.5-5.2) Chloride 106 mEq/L mEq/L (97-110) Carbon Dioxide 25 mEq/l mEq/l (22-31) Anion Gap 15 mEq/L mEq/L (8-16) BUN 16 mg/dL mg/dL (7-23) Creatinine 1.2 mg/dL mg/dL (0.7-1.3) Estimated GFR > 60 Glucose 108 mg/dL H mg/dL (70-100) Calcium 10.6 mg/dL H mg/dL (8.5-10.4) Urine Opiates Screen NEGATIVE (NEGATIVE) Urine Barbiturates NEGATIVE (NEGATIVE) Ur Phencyclidine Scrn NEGATIVE (NEGATIVE) Ur Amphetamine Screen NEGATIVE (NEGATIVE) U Benzodiazepines Scrn NEGATIVE (NEGATIVE) Urine Cocaine Screen NEGATIVE (NEGATIVE) U Marijuana (THC) Screen NEGATIVE (NEGATIVE) Ethyl Alcohol < 10 mg/dL mg/dL (0-10) Medications Given: Discontinued Medications Acetaminophen (Tylenol) 650 mg PO EDNOW ONE Stop: 06/10/17 20:06 Last Admin: 06/10/17 20:11 Dose: 650 mg Sodium Chloride (Ns) 1,000 mls @ 0 mls/hr IV EDNOW ONE; Wide Open PRN Reason: Protocol Stop: 06/10/17 15:41 Last Admin: 06/10/17 15:52 Dose: 1,000 mls General Initial Vital Signs: Initial Vital Signs Temperature (C) 37.1 C 06/10/17 15:49 Heart Rate 94 06/10/17 15:49 Respiratory Rate 17 06/10/17 15:49 Blood Pressure 147/105 H 06/10/17 15:49 O2 Sat (%) 88 L 06/10/17 15:49 O2 Delivery Mode Room Air O2 (L/minute) 2 Allergies/Adverse Reactions: No Known Allergies Allergy (Verified 02/03/15 22:26) Home Medications: Medication Instructions Recorded Gabapentin [Neurontin 300 MG (*)] 600 mg PO TID 03/11/17 PARoxetine HCL [Paxil 20mg (*)] 40 mg PO DAILY 03/11/17 QUEtiapine FUMARATE [Seroquel 100 100 mg PO BID@09,16 03/11/17 mg (*)] QUEtiapine FUMARATE [Seroquel 200 200 mg PO HS 03/11/17 mg (*)] AMOXICILLIN 06/10/17 Ibuprofen 06/10/17 Departure - Departure Disposition: Home, Routine, Self-Care Clinical Impression: Altered mental status Qualifiers: Altered mental status type: unspecified Qualified Code(s): R41.82 - Altered mental status, unspecified Condition: Good Instructions: Altered Mental Status (ED) Additional Instructions: 1. Follow up with your primary care provider this week. 2. Return to the emergency department for recurrence of symptoms, fever, chest pain, shortness of breath, or other worsening of condition. Referrals: Teri Beauchamp MD [Medical Doctor] - As per Instructions Report Scribed for: Deangelo Hill Report Scribed by: Za Pond Date of Report: 06/10/17 Time of Report: 16:55 Physician Review and Approval Statement: Portions of this note were transcribed by an ED scribe. I personally performed the history, physical exam, and medical decision making; and confirm the accuracy of the information in the transcribed note.
[2017-06-10] MEDS ORDERED: NS 1,000 ML IV ONE (15:40)
[2017-06-10 16:04] LABS: PLATELET COUNT 272 10^3/uL (150-400)
--- NOTE | 2017-06-10 16:04 | CPEKG ---
Heart Rate: 88 RR Interval: 682 P-R Interval: 152 QRSD Interval: 96 QT Interval: 380 QTC Interval: 460 P [place]: 73 QRS [place]: 73 T Wave [place]: 53 EKG Severity - ABNORMAL ECG - EKG Impression: SINUS RHYTHM EKG Impression: RIGHT ATRIAL ABNORMALITY Electronically Signed By: Grey Davila 12-Jun-2017 07:05:06
[2017-06-10 18:26] VITALS: TEMP 98.1
[2017-06-10] MEDS ORDERED: ACETAMINOPHEN 325 MG TAB PO ONE (20:05)
[2017-06-10 20:12] VITALS: BP 162/90; O2SAT 96
[2017-06-10 20:14] VITALS: PULSE 69; RESP 14
== END 2017-06-10 20:29 | disposition home or self-care (01) ==
LOC: EDUNIT#
DX: R41.82 Altered mental status, unspecified (principal); E86.9 Volume depletion, unspecified
CPT/HCPCS: 80305; G0480

== ENCOUNTER 2017-06-13 19:22 | Emergency (ER) | payer MEDICAID ==
[2017-06-13] MEDS ORDERED: LORazepam 1 MG TAB PO ONE (19:31)
--- NOTE | 2017-06-13 19:32 | EDPHY ---
H & P Time Seen by Provider: 06/13/17 19:25 HPI/ROS: CHIEF COMPLAINT: Anxiety attack HISTORY OF PRESENT ILLNESS: The patient is a 57-year-old homeless bipolar man with history of anxiety and PTSD as well as alcoholism who called EMS complaining of shortness of breath. He is saturating 100% on room air and hyperventilating. He also describes occasional nausea vomiting abdominal cramping which also appears to be chronic according to medical record. He denies chest pain. He denies fever. Paramedics were able to help calm him down he is feeling better. REVIEW OF SYSTEMS: Constitutional: denies: chills, fever, recent illness, recent injury EENTM: denies: blurred vision, double vision, nose congestion Respiratory: See HPI Cardiac: denies: chest pain, irregular heart rate, lightheadedness, palpitations Gastrointestinal/Abdominal: denies: abdominal pain, diarrhea, nausea, vomiting, blood streaked stools Genitourinary: denies: dysuria, frequency, hematuria, pain Musculoskeletal: denies: joint pain, muscle pain Skin: denies: lesions, rash, jaundice, bruising Neurological: denies: headache, numbness, paresthesia, tingling, dizziness, weakness Hematologic/Lymphatic: denies: blood clots, easy bleeding, easy bruising Immunologic/allergic: denies: HIV/AIDS, transplant EXAM: GENERAL: Hyperventilating, no acute distress HEAD: Atraumatic, normocephalic. EYES: Pupils equal round and reactive to light, extraocular movements intact, sclera anicteric, conjunctiva are normal. ENT: TMs normal, nares patent, oropharynx clear without exudates. Moist mucous membranes. NECK: Normal range of motion, supple without lymphadenopathy or JVD. LUNGS: Breath sounds clear to auscultation bilaterally and equal. No wheezes rales or rhonchi. HEART: Regular rate and rhythm without murmurs, rubs or gallops. ABDOMEN: Soft, nontender, normoactive bowel sounds. No guarding, no rebound. No masses appreciated. BACK: No CVA tenderness, no spinal tenderness, step-offs or deformities EXTREMITIES: Normal range of motion, no pitting or edema. No clubbing or cyanosis. NEUROLOGICAL: Cranial nerves II through XII grossly intact. Normal speech, normal gait. 5/5 strength, normal movement in all extremities, normal sensation PSYCH: Anxious, hyperventilating SKIN: Warm, dry, normal turgor, no visible rashes or lesions. Source: Patient, EMS, Old records Exam Limitations: No limitations - Personal History Tetanus Vaccine Date: <10 YEARS - Medical/Surgical History Hx Asthma: No Hx Chronic Respiratory Disease: No Hx Diabetes: No Hx Cardiac Disease: No Hx Renal Disease: No Hx Cirrhosis: No Hx Alcoholism: Yes Hx HIV/AIDS: No Hx Splenectomy or Spleen Trauma: No Other PMH: PMH--BIPOLAR, ETOH abuse, PTSD, anxiety. alcohol withdrawl. PSH-- Appy, Choly - Family History Significant Family History: No pertinent family hx - Social History Smoking Status: Heavy smoker Alcohol Use: Heavy Drug Use: Marijuana Constitutional: Initial Vital Signs Temperature (C) 36.9 C 06/13/17 19:31 Heart Rate 74 06/13/17 19:31 Respiratory Rate 24 H 06/13/17 19:31 Blood Pressure 136/77 H 06/13/17 19:31 O2 Sat (%) 99 06/13/17 19:31 O2 Delivery Mode Room Air Allergies/Adverse Reactions: No Known Allergies Allergy (Verified 06/13/17 19:31) Home Medications: Medication Instructions Recorded Gabapentin [Neurontin 300 MG (*)] 600 mg PO TID 03/11/17 PARoxetine HCL [Paxil 20mg (*)] 40 mg PO DAILY 03/11/17 QUEtiapine FUMARATE [Seroquel 100 100 mg PO BID@09,16 03/11/17 mg (*)] QUEtiapine FUMARATE [Seroquel 200 200 mg PO HS 03/11/17 mg (*)] AMOXICILLIN 06/10/17 Ibuprofen 06/10/17 Medical Decision Making ED Course/Re-evaluation: The patient has Breathalyzer 0.093 9:00 p.m. Patient feels completely better. He wonders why he had an anxiety attack. He is eager to go. He is asking for food. Differential Diagnosis: Partial list of the Differential diagnosis considered include but were not limited to; anxiety, asthma, COPD and although unlikely based on the history and physical exam, I also considered pneumonia, PE, acute coronary disease. I discussed these differential diagnoses and the plan with the patient as well as the usual and expected course. The patient understands that the diagnosis is provisional and that in medicine we are not always correct and that further workup is often warranted. Usual and customary warnings were given. All of the patient's questions were answered. The patient was instructed to return to the emergency department should the symptoms at all worsen or return, otherwise to followup with the physician as we discussed. - Data Points Medications Given: Discontinued Medications Lorazepam (Ativan) 2 mg PO EDNOW ONE Stop: 06/13/17 19:32 Last Admin: 06/13/17 19:36 Dose: 2 mg Departure - Departure Disposition: Home, Routine, Self-Care Clinical Impression: Anxiety attack, Alcohol abuse, daily use Condition: Fair Instructions: Anxiety (ED) Referrals: NONE *PRIMARY CARE P,. [Primary Care Provider] - As per Instructions
[2017-06-13 21:13] VITALS: BP 146/86; PULSE 109; RESP 18; TEMP 97.7; O2SAT 96
== END 2017-06-13 21:12 | disposition home or self-care (01) ==
LOC: EDUNIT#
DX: F41.9 Anxiety disorder, unspecified (principal); F17.200 Nicotine dependence, unspecified, uncomplicated

== ENCOUNTER 2017-06-26 22:51 | Emergency (ER) | payer MEDICAID ==
--- NOTE | 2017-06-26 22:54 | EDPHY ---
H & P Time Seen by Provider: 06/26/17 23:00 HPI/ROS: HPI CHIEF COMPLAINT: Headache HISTORY OF PRESENT ILLNESS: This patient 57-year-old male, he is homeless, history of alcoholism, he states he was recently hospitalized [facility] for a fall. He states he had a trip and fall and injured his right hand. He [place] by EMS from the local [place] stating that he feels unwell. He states he thought he may be having a seizure or feeling like he is having pre seizure symptoms. He also complains of right-sided headache. 06/29. States he has had that all day. No fever. No stiff neck. He denies any chest pain or shortness of breath. Denies current use of alcohol or drugs. Past Medical History: Homelessness, alcoholism, history of fatigue, nausea vomiting, GERD, fatty liver Past Surgical History: No recent surgery Social History: Homeless. Family History: Noncontributory ROS REVIEW OF SYSTEMS: A comprehensive 10 point review of systems is otherwise negative aside from elements mentioned in the history of present illness. Exam Constitutional triage nursing summary reviewed, vital signs reviewed, awake/ alert. Eyes normal conjunctivae and sclera, EOMI, PERRLA. HENT normal inspection, atraumatic, moist mucus membranes, no epistaxis, neck supple/ no meningismus, no raccoon eyes. Respiratory clear to auscultation bilaterally, normal breath sounds, no respiratory distress, no wheezing. Cardiovascular rate normal, regular rhythm, no murmur, no edema, distal pulses normal. Gastrointestinal soft, non-tender, no rebound, no guarding, normal bowel sounds, no distension, no pulsatile mass. Genitourinary no CVA tenderness. Musculoskeletal no midline vertebral tenderness, full range of motion, no calf swelling, no tenderness of extremities, no meningismus, good pulses, neurovascularly intact. Skin abrasions to his chin, pink, warm, & dry, no rash, skin atraumatic. Neurologic awake, alert and oriented x 3, AAOx3, moves all 4 extremities equally, motor intact, sensory intact, CN II-XII intact, normal cerebellar, normal vision, normal speech. Psychiatric normal mood/affect. Heme/Lymph/Immune no lymphadenopathy. Differential Diagnosis: Includes but is not limited to in a particular order current intracranial bleed from recent fall, feeling as if he is going to have a seizure, electrolyte disturbance, dehydration, infection Medical Decision Making: Plan for this patient IV establishment IV fluid bolus , check basic blood work including labs including magnesium and electrolytes. CT scan of his head without contrast rule out bleed or trauma. Re-evaluation: EKG interpretation by me on record in [facility] system. Impression time of EKG 2303, sinus rhythm rate of 61 no acute ischemic changes. No ST elevation no ST depression no significant T-wave abnormalities. No prolonged loss. CT scan head without contrast called to me by Dr. Gwyn Guerra. Negative for intracranial abnormality. Atrophy noted. No bleed. No evidence of trauma. 0105: Patient requesting some to eat. He was fed. States he feels much better. He has no focal complaints this time. His blood work is reassuring. Vitals are stable. CT scan is unremarkable. After being fed and sleeping for few hours in the emergency room is feeling much better he is agreeable discharge. Discussed return precautions with him. Source: Patient - Personal History Tetanus Vaccine Date: <10 YEARS - Medical/Surgical History Hx Asthma: No Hx Chronic Respiratory Disease: No Hx Diabetes: No Hx Cardiac Disease: No Hx Renal Disease: No Hx Cirrhosis: No Hx Alcoholism: Yes Hx HIV/AIDS: No Hx Splenectomy or Spleen Trauma: No Other PMH: PMH--BIPOLAR, ETOH abuse, PTSD, anxiety. alcohol withdrawl. PSH-- Appy, Choly - Social History Smoking Status: Heavy smoker Constitutional: Initial Vital Signs Temperature (C) 36.6 C 06/26/17 22:56 Heart Rate 69 06/26/17 22:56 Respiratory Rate 16 06/26/17 22:56 Blood Pressure 127/84 H 06/26/17 22:56 O2 Sat (%) 97 06/26/17 22:56 O2 Delivery Mode Room Air Allergies/Adverse Reactions: No Known Allergies Allergy (Verified 06/26/17 22:54) Home Medications: Medication Instructions Recorded Remeron 06/26/17 Medical Decision Making - Diagnostics Imaging Results: Imaging Impressions Head CT 06/26/17 23:00 Impression: There is no acute intracranial abnormality identified on this unenhanced CT evaluation. If there is further clinical concern regarding the patient's symptoms, MR imaging is suggested, if not otherwise contraindicated. Findings were discussed with Trung Zayas MD at 23:31, on 06/26/2017. - Data Points Laboratory Results: Laboratory Results 06/26/17 23:04 06/26/17 23:04 06/27/17 06/26/17 06/26/17 00:40 23:04 23:04 WBC RBC Hgb Hct MCV MCH MCHC RDW Plt Count MPV Neut % (Auto) Lymph % (Auto) [place] % (Auto) Eos % (Auto) Baso % (Auto) Nucleat RBC Rel Count Absolute Neuts (auto) Absolute Lymphs (auto) Absolute Monos (auto) Absolute Eos (auto) Absolute Basos (auto) Absolute Nucleated RBC Immature Gran % Immature Gran # PT 13.0 SEC SEC (12.0-15.0) INR 0.96 (0.83-1.16) APTT 27.4 SEC SEC (23.0-38.0) Sodium 145 mEq/L mEq/L (135-145) Potassium 3.9 mEq/L mEq/L (3.5-5.2) Chloride 112 mEq/L H mEq/L (97-110) Carbon Dioxide 21 mEq/l L mEq/l (22-31) Anion Gap 12 mEq/L mEq/L (8-16) BUN 16 mg/dL mg/dL (7-23) Creatinine 0.7 mg/dL mg/dL (0.7-1.3) Estimated GFR > 60 Glucose 110 mg/dL H mg/dL (70-100) Calcium 9.4 mg/dL mg/dL (8.5-10.4) Magnesium 1.7 mg/dL mg/dL (1.6-2.3) Total Bilirubin 0.4 mg/dL mg/dL (0.1-1.4) Conjugated Bilirubin 0.2 mg/dL mg/dL (0.0-0.5) Unconjugated Bilirubin 0.2 mg/dL mg/dL (0.0-1.1) AST 35 IU/L IU/L (17-59) ALT 37 IU/L IU/L (21-72) Alkaline Phosphatase 87 IU/L IU/L (38-126) Total Protein 7.0 g/dL g/dL (6.3-8.2) Albumin 4.1 g/dL g/dL (3.5-5.0) Urine Color YELLOW Urine Appearance CLEAR Urine pH 6.0 (5.0-7.5) Ur Specific [place] 1.018 (1.002-1.030) Urine Protein NEGATIVE (NEGATIVE) Urine Ketones NEGATIVE (NEGATIVE) Urine Blood NEGATIVE (NEGATIVE) Urine Nitrate NEGATIVE (NEGATIVE) Urine Bilirubin NEGATIVE (NEGATIVE) Urine Urobilinogen NEGATIVE EU EU (0.2-1.0) Ur Leukocyte Esterase NEGATIVE (NEGATIVE) Urine Glucose NEGATIVE (NEGATIVE) Urine Opiates Screen NEGATIVE (NEGATIVE) Urine Barbiturates NEGATIVE (NEGATIVE) Ur Phencyclidine Scrn NEGATIVE (NEGATIVE) Ur Amphetamine Screen NEGATIVE (NEGATIVE) U Benzodiazepines Scrn NEGATIVE (NEGATIVE) Urine Cocaine Screen NEGATIVE (NEGATIVE) U Marijuana (THC) Screen NEGATIVE (NEGATIVE) Ethyl Alcohol < 10 mg/dL mg/dL (0-10) 06/26/17 23:04 WBC 6.01 10^3/uL 10^3/uL (3.80-9.50) RBC 4.36 10^6/uL L 10^6/uL (4.40-6.38) Hgb 13.0 g/dL L g/dL (13.7-17.5) Hct 39.5 % L % (40.0-51.0) MCV 90.6 fL fL (81.5-99.8) MCH 29.8 pg pg (27.9-34.1) MCHC 32.9 g/dL g/dL (32.4-36.7) RDW 15.2 % % (11.5-15.2) Plt Count 187 10^3/uL 10^3/uL (150-400) MPV 10.9 fL fL (8.7-11.7) Neut % (Auto) 58.1 % % (39.3-74.2) Lymph % (Auto) 31.9 % % (15.0-45.0) [place] % (Auto) 7.8 % % (4.5-13.0) Eos % (Auto) 1.5 % % (0.6-7.6) Baso % (Auto) 0.5 % % (0.3-1.7) Nucleat RBC Rel Count 0.0 % % (0.0-0.2) Absolute Neuts (auto) 3.49 10^3/uL 10^3/uL (1.70-6.50) Absolute Lymphs (auto) 1.92 10^3/uL 10^3/uL (1.00-3.00) Absolute Monos (auto) 0.47 10^3/uL 10^3/uL (0.30-0.80) Absolute Eos (auto) 0.09 10^3/uL 10^3/uL (0.03-0.40) Absolute Basos (auto) 0.03 10^3/uL 10^3/uL (0.02-0.10) Absolute Nucleated RBC 0.00 10^3/uL 10^3/uL (0-0.01) Immature Gran % 0.2 % % (0.0-1.1) Immature Gran # 0.01 10^3/uL 10^3/uL (0.00-0.10) PT INR APTT Sodium Potassium Chloride Carbon Dioxide Anion Gap BUN Creatinine Estimated GFR Glucose Calcium Magnesium Total Bilirubin Conjugated Bilirubin Unconjugated Bilirubin AST ALT Alkaline Phosphatase Total Protein Albumin Urine Color Urine Appearance Urine pH Ur Specific [place] Urine Protein Urine Ketones Urine Blood Urine Nitrate Urine Bilirubin Urine Urobilinogen Ur Leukocyte Esterase Urine Glucose Urine Opiates Screen Urine Barbiturates Ur Phencyclidine Scrn Ur Amphetamine Screen U Benzodiazepines Scrn Urine Cocaine Screen U Marijuana (THC) Screen Ethyl Alcohol Medications Given: Discontinued Medications Sodium Chloride (Ns) 1,000 mls @ 0 mls/hr IV EDNOW ONE; Wide Open PRN Reason: Protocol Stop: 06/26/17 23:00 Last Admin: 06/26/17 23:06 Dose: 1,000 mls Departure - Departure Disposition: Home, Routine, Self-Care Clinical Impression: Fatigue Qualifiers: Fatigue type: unspecified Qualified Code(s): R53.83 - Other fatigue Condition: Fair Instructions: Fatigue (ED) Additional Instructions: 1. Stay well-hydrated drink lots of fluids. 2. Return emergency room if you have worsening symptoms questions or concerns. Referrals: NONE *PRIMARY CARE P,. [Primary Care Provider] - As per Instructions
[2017-06-26 22:58] VITALS: RESP 16
[2017-06-26] MEDS ORDERED: NS 1,000 ML IV ONE (22:59)
--- NOTE | 2017-06-26 23:05 | CPEKG ---
Heart Rate: 61 RR Interval: 984 P-R Interval: 140 QRSD Interval: 98 QT Interval: 412 QTC Interval: 415 P [place]: 17 QRS [place]: 57 T Wave [place]: 49 EKG Severity - NORMAL ECG - EKG Impression: SINUS RHYTHM Electronically Signed By: Denzel An 28-Jun-2017 12:31:50
[2017-06-26 23:14] LABS: PLATELET COUNT 187 10^3/uL (150-400)
[2017-06-26 23:24] LABS: INR 0.96 (0.83-1.16)
[2017-06-27 00:43] VITALS: PULSE 67
[2017-06-27 01:35] VITALS: BP 115/80; TEMP 98.2; O2SAT 96
== END 2017-06-27 01:34 | disposition home or self-care (01) ==
LOC: EDUNIT#
DX: R53.83 Other fatigue (principal); E86.9 Volume depletion, unspecified; F17.200 Nicotine dependence, unspecified, uncomplicated
CPT/HCPCS: 80305; G0480

== ENCOUNTER 2017-10-13 16:17 | Emergency (ER) | payer MEDICAID ==
--- NOTE | 2017-10-13 16:57 | EDPHY ---
H & P Stated Complaint: witnessed seizure, SARMIENTO, dizzy, confusion Time Seen by Provider: 10/13/17 16:19 HPI/ROS: CHIEF COMPLAINT: Generalized seizure HISTORY OF PRESENT ILLNESS: 57-year-old male with seizure disorder and alcoholism presents after a generalized seizure. He was in the park and developed a visual aura, typical of his seizures. He then had a witnessed generalized seizure lasting several minutes. He now has a moderate headache. He thinks that the headache is typical of his seizures, but he does not remember. Last seizure was in December 2016. He was given a prescription for Keppra, but ran out of Keppra. He was originally diagnosed with epilepsy in 2003. He saw a neurologist at that time, had EEG and CT scan and was placed on Keppra. He has been sober for 20 months. No recent illness. REVIEW OF SYSTEMS: complete 10 point ROS negative except at noted in the HPI - Personal History Current Tetanus/Diphtheria Vaccine: Yes Current Tetanus Diphtheria and Acellular Pertussis (TDAP): Yes Tetanus Vaccine Date: <10 YEARS - Medical/Surgical History Hx Asthma: No Hx Chronic Respiratory Disease: No Hx Diabetes: No Hx Cardiac Disease: No Hx Renal Disease: No Hx Cirrhosis: No Hx Alcoholism: Yes Hx HIV/AIDS: No Hx Splenectomy or Spleen Trauma: No Other PMH: PMH--BIPOLAR, ETOH abuse, PTSD, anxiety. Seizure disorder. PSH-- Appy, Choly - Social History Smoking Status: Heavy smoker Alcohol Use: Sober Additional Social History: Homeless - Physical Exam Exam: General Appearance: Alert, pleasant and talkative Head: Abrasions right frontal area Eyes: Pupils equal and round, no conjunctival pallor or injection ENT, Mouth: Mucous membranes moist Neck: Normal inspection, no midline tenderness, range of motion without pain Respiratory: no chest wall tenderness, Lungs are clear to auscultation Cardiovascular: Regular rate and rhythm Gastrointestinal: Abdomen is soft and nontender Back: Normal inspection, No midline tenderness Neurological: Alert, oriented x3, cranial nerves II through XII intact, motor 5 /5, sensory intact to light touch Skin: Warm and dry Extremities: Normal inspection Psychiatric: Mood and affect normal Constitutional: Initial Vital Signs Temperature (C) 36.9 C 10/13/17 16:26 Heart Rate 71 10/13/17 16:26 Respiratory Rate 18 06/24/18 16:26 Blood Pressure 115/77 10/13/17 16:26 O2 Sat (%) 96 10/13/17 16:26 O2 Delivery Mode Room Air Allergies/Adverse Reactions: No Known Allergies Allergy (Verified 06/26/17 22:54) Home Medications: Medication Instructions Recorded Gabapentin 10/13/17 Seroquel 10/13/17 clonIDINE 10/13/17 levETIRAcetam [Keppra 500 mg (*)] 500 mg PO BID #60 tab 10/13/17 Medical Decision Making ED Course/Re-evaluation: This patient presents after a generalized seizure. He has a history of a seizure disorder and was previously on Keppra. Keppra 1 gram IV given. Tylenol 650 mg orally given for headache. 6:00 p.m.-feels much better after Tylenol. Neuro exam is normal and I do not suspect ICH. Wants to go to the long term. This is an appropriate plan for the patient. He has a follow-up appointment at [facility] tomorrow morning. Differential Diagnosis: Differential diagnosis includes though it is not limited to status epilepticus, hypoglycemia, intracranial hemorrhage, CVA, benzodiazepine withdrawal, alcohol withdrawal, epilepsy. - Data Points Medications Given: Discontinued Medications Acetaminophen (Tylenol) 650 mg PO EDNOW ONE Stop: 10/13/17 17:00 Last Admin: 10/13/17 17:12 Dose: 650 mg Levetiracetam (Keppra (Premix)) 100 mls @ 400 mls/hr IV EDNOW ONE Stop: 10/13/17 17:13 Last Admin: 10/13/17 17:26 Dose: 100 mls Departure - Departure Disposition: Home, Routine, Self-Care Clinical Impression: Seizure disorder Condition: Good Instructions: Levetiracetam (By mouth), Epilepsy (ED) Additional Instructions: The [facility] has walk-in appointments for the homeless at the following days/locations. No appointment is needed. Saturday 8-10 am @ [facility] 11 AM-1 PM @ [facility] Saturday 8-10:30 AM @ [facility] Saturday 8-10 AM @ [facility] 2-4 PM @ [facility] Saturday 8-10 AM @ [facility] Referrals: [facility],. [Clinic] - As per Instructions Prescriptions: levETIRAcetam [Keppra 500 mg (*)] 500 mg PO BID #60 tab
[2017-10-13] MEDS ORDERED: ACETAMINOPHEN 325 MG TAB PO ONE (16:59)
[2017-10-13] MEDS ORDERED: levETIRAcetam 1000MG/NACL 100 ML IV ONE (16:59)
--- NOTE | 2017-10-13 17:58 | ASMTCMCOM ---
CM Note CM Note Notes: Pt presented to the ED via EMS after having a seizure and hitting his head. Pt medically cleared and wants to be discharged so he can make it to the [facility] by 7pm. CM provided a cab voucher in order to get him there in time. Pt states he has an appt tomorrow at 10:25am at [facility]. CM to follow up w/PC tomorrow to ensure they're aware of pt's seizure and head injury. Date Signed: 10/13/2017 05:57 PM Electronically Signed By:Dionna Belle RN
[2017-10-13 18:00] VITALS: BP 123/85
--- NOTE | 2017-10-13 18:01 | ASDISCHSUM ---
Discharge Information Plan Status:Homeless/Retirement Medically Cleared to Leave: Discharge Date: CM D/C Disposition:Streets (Homeless) ADT D/C Disposition:Home, Routine, Self-Care Projected Discharge Date: Transportation at D/C:Cab Voucher Discharge Delay Reason: Follow-Up Date: Discharge Slot: Final Diagnosis: Placement Information Patient Contact Information Contact Name:LILIAN Relationship:Father Address: Work Phone: City:[place] Alternate Phone: State/Zip Code:[place] Email: Financial Information Financial Class:Medicaid Primary Plan Desc:MEDICA[employer] HEALTH FIRST S[employer]IOR [employer] Primary Plan Number:[id number] Secondary Plan Desc: Secondary Plan Number: Assessment Information [facility] CM Progress Note CM Note CM Note Notes: Pt presented to the ED via EMS after having a seizure and hitting his head. Pt medically cleared and wants to be discharged so he can make it to the [facility] by 7pm. provided a cab voucher in order to get him there in time. Pt states he has an appt tomorrow at 10:25am at [facility]. CM to follow up w/PC tomorrow to ensure they're aware of pt's seizure and head injury. Date Signed: 10/13/2017 05:57 PM Electronically Signed By:Dionna Belle RN Intervention Information Intervention Type:Cab Vouchers Date of Service:10/13/2017 05:59 PM Patient Type:Emergency Room Staff Member:MIKEY Belle [place] Hours:0.25 Discipline:Barrel Racer Severity: Comment: Intervention Type:Post Acute Communication Date of Service:10/13/2017 05:59 PM Patient Type:Emergency Room Staff Member:MIKEY Belle [place] Hours:0.25 Discipline:Barrel Racer Severity: Comment:
== END 2017-10-13 17:59 | disposition home or self-care (01) ==
LOC: EDUNIT#
DX: G40.909 Epilepsy, unspecified, not intractable, without status epilepticus (principal); F17.200 Nicotine dependence, unspecified, uncomplicated
CPT/HCPCS: 96365; J1953

== ENCOUNTER 2018-01-09 00:15 | Emergency (ER) | payer MEDICAID ==
[2018-01-09] MEDS ORDERED: ACETAMINOPHEN 500 MG TAB PO ONE (00:46)
[2018-01-09 00:48] LABS: PLATELET COUNT 241 10^3/uL (150-400)
--- NOTE | 2018-01-09 00:50 | EDPHY ---
H & P Stated Complaint: Sz per pt Time Seen by Provider: 01/09/18 00:19 HPI/ROS: Chief Complaint: Seizure x2 HPI: 57-year-old male with a known history of seizure disorders and alcohol dependence presenting states he has had 2 seizures. He says he knows this because he had to or other is with "pixelated vision"and other visual aura. He is now complaining of a moderate headache. He denies recent alcohol use. He states that he has been compliant with his gabapentin and Seroquel. He had taking Keppra in the past but was taken off this by his neurologist several months ago because it was making to somnolent during the day. No recent falls or head injuries. No fevers or chills. No nausea or vomiting. No chest pain or shortness of breath. Denies any other substance use. He states he did not bite his tongue or was incontinent of urine, this is typical for his seizures. ROS: 10 systems were reviewed and were negative except those elements noted in the HPI. PMH: Seizure disorder Social History: Denies smoking, denies alcohol, denies other drug use, currently homeless Family History: non-contributory Physical Exam: Gen: Awake, Alert, No Distress HEENT: Nose: no rhinorrhea Eyes: PERRLA, EOMI Mouth: Moist mucosa Neck: Supple, no JVD Chest: nontender, lungs clear to auscultation Heart: S1, S2 normal, no murmur Abd: Soft, non-tender, no guarding Back: no CVA tenderness, no midline tenderness Ext: no edema, non-tender Skin: no rash Neuro: CN II-XII intact, Sensation grossly intact, Strength 5/5 in bilateral upper and lower extremities - Personal History Current Tetanus/Diphtheria Vaccine: Yes Current Tetanus Diphtheria and Acellular Pertussis (TDAP): Yes Tetanus Vaccine Date: <10 YEARS - Medical/Surgical History Hx Asthma: No Hx Chronic Respiratory Disease: No Hx Diabetes: No Hx Cardiac Disease: No Hx Renal Disease: No Hx Cirrhosis: No Hx Alcoholism: Yes Hx HIV/AIDS: No Hx Splenectomy or Spleen Trauma: No Other PMH: PMH--BIPOLAR, ETOH abuse, PTSD, anxiety. Seizure disorder. PSH-- Appy, Choly - Social History Smoking Status: Heavy smoker Constitutional: Initial Vital Signs Temperature (C) 36.6 C 01/09/18 00:21 Heart Rate 57 L 01/09/18 00:21 Respiratory Rate 16 01/09/18 00:21 Blood Pressure 119/79 01/09/18 00:21 O2 Sat (%) 94 01/09/18 00:21 O2 Delivery Mode Room Air Allergies/Adverse Reactions: No Known Allergies Allergy (Verified 01/09/18 00:22) Home Medications: Medication Instructions Recorded Gabapentin 10/13/17 Seroquel 10/13/17 clonIDINE 10/13/17 levETIRAcetam [Keppra 500 mg (*)] 500 mg PO BID #60 tab 10/13/17 Medical Decision Making ED Course/Re-evaluation: 57-year-old male presenting complaining of 2 seizures. There are no obvious signs of seizures in examining him. Is not been incontinent. He did not bite his tongue. He does not have any evidence of lactic acidosis with a normal CO2 his laboratory evaluations. He has ambulated unassisted in the emergency department. He has had no further seizure activity. Plan will be to discharge him to home with follow-up with his neurologist, return for any concerns. - Data Points Laboratory Results: Laboratory Results 01/09/18 00:20 01/09/18 00:20 01/09/18 01/09/18 01/09/18 00:20 00:20 00:20 WBC 8.93 10^3/uL 10^3/uL (3.80-9.50) RBC 4.60 10^6/uL 10^6/uL (4.40-6.38) Hgb 13.3 g/dL L g/dL (13.7-17.5) Hct 40.8 % % (40.0-51.0) MCV 88.7 fL fL (81.5-99.8) MCH 28.9 pg pg (27.9-34.1) MCHC 32.6 g/dL g/dL (32.4-36.7) RDW 14.1 % % (11.5-15.2) Plt Count 241 10^3/uL 10^3/uL (150-400) MPV 10.6 fL fL (8.7-11.7) Neut % (Auto) 61.8 % % (39.3-74.2) Lymph % (Auto) 26.9 % % (15.0-45.0) [place] % (Auto) 8.7 % % (4.5-13.0) Eos % (Auto) 2.0 % % (0.6-7.6) Baso % (Auto) 0.4 % % (0.3-1.7) Nucleat RBC Rel Count 0.0 % % (0.0-0.2) Absolute Neuts (auto) 5.51 10^3/uL 10^3/uL (1.70-6.50) Absolute Lymphs (auto) 2.40 10^3/uL 10^3/uL (1.00-3.00) Absolute Monos (auto) 0.78 10^3/uL 10^3/uL (0.30-0.80) Absolute Eos (auto) 0.18 10^3/uL 10^3/uL (0.03-0.40) Absolute Basos (auto) 0.04 10^3/uL 10^3/uL (0.02-0.10) Absolute Nucleated RBC 0.00 10^3/uL 10^3/uL (0-0.01) Immature Gran % 0.2 % % (0.0-1.1) Immature Gran # 0.02 10^3/uL 10^3/uL (0.00-0.10) Sodium 141 mEq/L mEq/L (135-145) Potassium 4.2 mEq/L mEq/L (3.3-5.0) Chloride 107 mEq/L mEq/L (97-110) Carbon Dioxide 24 mEq/l mEq/l (22-31) Anion Gap 10 mEq/L mEq/L (8-16) BUN 12 mg/dL mg/dL (7-23) Creatinine 1.1 mg/dL mg/dL (0.7-1.3) Estimated GFR > 60 Glucose 89 mg/dL mg/dL (70-100) Calcium 9.4 mg/dL mg/dL (8.5-10.4) Ethyl Alcohol < 10 mg/dL mg/dL (0-10) Medications Given: Discontinued Medications Acetaminophen (Tylenol) 1,000 mg PO EDNOW ONE Stop: 01/09/18 00:47 Last Admin: 01/09/18 01:01 Dose: Not Given Departure - Departure Disposition: Home, Routine, Self-Care Clinical Impression: Seizure Condition: Good Instructions: Epilepsy (ED) Additional Instructions: Follow up with primary care physician in 2-3 days for further evaluation. Return emergency department for increasing seizures, falls, head injury, or any other concerns. Referrals: [facility],. [Clinic] - As per Instructions
[2018-01-09 02:04] VITALS: BP 139/74
[2018-01-09] MEDS ORDERED: IBUPROFEN 600 MG TAB PO ONE (03:36)
== END 2018-01-09 02:04 | disposition home or self-care (01) ==
LOC: EDUNIT#
DX: G40.909 Epilepsy, unspecified, not intractable, without status epilepticus (principal)
CPT/HCPCS: G0480

== ENCOUNTER → 2018-07-08 | Outpatient (CLI) | payer MEDICAID | LOC: BMCIMAGING 10:35 | PROVIDERS: ATTEND Nurse Practitioner Family | DX: Z13.820 Encounter for screening for osteoporosis (principal); K90.0 Celiac disease ==

== ENCOUNTER 2018-09-17 12:42 | Emergency (ER) | payer MEDICAID | END 2018-09-17 13:16 | disposition home or self-care (01) ==

== ENCOUNTER 2018-10-06 11:00 | Emergency (ER) | payer MEDICAID | END 2018-10-06 18:54 | disposition home or self-care (01) ==